=== PATIENT | male | born 1990 | race African-American/Black ===

== ENCOUNTER 2020-11-26 07:16 | Emergency (ER) | payer OTHER ==
[~2020-11-26] VITALS: Ht 172.7 cm; Wt 82.0 kg
[2020-11-26] MEDS ORDERED: IBUP-2028 MT (08:08)
[2020-11-26] MEDS ORDERED: KETOROLAC 60MG/2ML VIAL IM ONE (08:15)
[2020-11-26] MEDS ORDERED: CYCL10TA7 MT (08:16)
[2020-11-26 08:34] VITALS: BP 123/78
== END 2020-11-26 08:36 | disposition home or self-care (01) ==
LOC: ER 07:16
DX: M54.5 Low back pain (principal)
CPT/HCPCS: 96372; 99283; J1885